=== PATIENT | female | born 1965 | race Caucasian/White ===

== ENCOUNTER 2018-02-10 12:23 | Observation (INO) ==
[2018-02-10 13:13] LABS: Basophils # 0.1 K/mcL (0.0-0.2); Basophils % 0.6 %; Eosinophils # 0.1 K/mcL (0.0-0.6); Eosinophils % 1.3 %; Hematocrit 42.4 % (35.3-44.9); Hemoglobin 14.3 g/dL (11.5-15.4); Immature Granulocytes % 0.3 % (0-4); Lymphocytes # 3.1 K/mcL (0.6-4.6); Lymphocytes % 34.3 %; Mean Corpuscular HGB Conc 33.7 g/dL (31.6-35.5); Mean Corpuscular Hemoglobin 31.2 pg (28.0-33.3); Mean Corpuscular Volume 92.6 fL (83.0-100.0); Monocytes # 0.5 K/mcL (0.0-1.3); Monocytes % 5.9 %; Neutrophils # 5.2 K/mcL (1.6-8.9); Platelet Count 208 K/mcL (140-400); Red Blood Count 4.58 M/mcL (3.82-4.97); Red Cell Distribution Width 11.9 % (11.5-14.5); Segmented Neutrophils % 57.6 %
[2018-02-10 13:25] LABS: INR 1.1; Prothrombin Time 11.3 Seconds (9.4-12.1)
[2018-02-10 13:38] LABS: Troponin I < 0.03 ng/mL (< 0.04)
[2018-02-10 13:59] LABS: Alanine Aminotransferase 35 Units/L (7-52); Albumin 4.3 g/dL (3.5-5.7); Albumin/Globulin Ratio 1.2 (1.1-2.2); Alkaline Phosphatase 84 Units/L (34-104); Aspartate Amino Transferase 27 Units/L (13-39); BUN/Creatinine Ratio 12 (6-26); Bilirubin,Total 0.5 mg/dL (0.3-1.0); Blood Urea Nitrogen 9 mg/dL (6-20); Calcium 9.8 mg/dL (8.6-10.3); Carbon Dioxide 25 mEq/L (23-29); Chloride 106 mEq/L (98-107); Globulin 3.5 g/dL (2.4-3.5); Glucose 103 mg/dL (70-105); Osmolality,Calculated 287 (280-300); Potassium 3.6 mEq/L (3.5-5.1); Sodium 139 mEq/L (136-145); Total Protein 7.8 g/dL (6.4-8.9); eGFR For African Americans > 60 (> 60); eGFR For Non-African Americans > 60 (> 60)
--- NOTE | 2018-02-10 14:23 | Emergency Department Note ---
Disposition Clinical Impression: Chest pain Qualifiers: Chest pain type: unspecified Qualified Code(s): R07.9 - Chest pain, unspecified Disposition: Admitted As Inpatient Condition: Undetermined Forms: ED Satisfaction Letter Time of Disposition: 15:00 Chest Pain HPI - General Chief Complaint: ED Chest Pain Stated Complaint: "CP,sob" Time Seen by Provider: 02/10/18 14:14 Source: patient Mode of arrival: ambulatory Limitations: no limitations Vital Signs Reviewed: Yes Nursing Notes Reviewed: Yes - History of Present Illness HPI Narrative: 52-year-old female with history of hypertension, hyperlipidemia, smoking with 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 The patient had associated dyspnea. No nausea or diaphoresis. No previous cardiac testing including no stress test or cardiac catheter. The patient was instructed that she had a previous mild IA in the past. The patient denies any other complaints at this time. She is chest pain-free. She denies any unilateral leg swelling, hemoptysis, history of DVT or PE, recent immobilizations or recent surgeries. She is resting comfortably in the room at this time. Severity scale (1-10): 8 - Related Data Allergies Allergy/AdvReac Type Severity Reaction Status Date / Time No Known Allergies Allergy Verified 02/10/18 12:26 All systems ED: reviewed and negative except as stated. Constitutional: Denies: fever, chills, weakness ENT ED: Denies: congestion Cardiovascular: Reports: chest pain. Denies: dyspnea on exertion, edema, syncope Respiratory: Reports: dyspnea. Denies: cough, sputum production Gastrointestinal: Denies: abdominal pain, nausea, vomiting Genitourinary: Denies: urgency, dysuria Musculoskeletal: Reports: neck pain. Denies: back pain, arthralgia, myalgia Integumentary: Denies: rash Neurological: Denies: headache Chest Pain PMH - Past Medical History Medical history: Reports: hyperlipidemia, hypertension, other Surgical history: Reports: non-contributory - Social History Smoking Status: Current every day smoker Alcohol use: Reports: none Drug use: Reports: none Physical Exam - General Limitations: no limitations General appearance: alert, in no apparent distress - Head Head exam: atraumatic, normocephalic, normal inspection - Eye Eye exam: Present: normal appearance, PERRL, EOMI - ENT ENT exam: normal exam, normal oropharynx, mucous membranes moist - Neck Neck exam: Present: normal inspection, full ROM, trachea midline - Chest Chest inspection: Present: normal inspection, symmetric chest wall rise - Respiratory Respiratory exam: Present: normal lung sounds bilaterally - Cardiovascular Cardiovascular exam: Present: normal rhythm, tachycardia, normal heart sounds - Abdominal Exam Abdominal exam: Present: soft, Non-Tender. Absent: tenderness, distention, guarding, rebound, rigidity - Extremities Exam Extremities exam: Present: normal inspection, full ROM. Absent: tenderness, pedal edema - Neurological Exam Neurological exam: Present: alert, oriented X3 - Skin Skin exam: Present: warm, dry, intact, normal color Course Vital Signs Temperature 98.1 F 02/10/18 12:26 Pulse Rate 113 02/10/18 12:26 Respiratory Rate 20 02/10/18 12:26 Blood Pressure 126/87 02/10/18 12:26 O2 Sat by Pulse Oximetry 95 02/10/18 12:26 Temperature 98.1 F 02/10/18 12:26 Pulse Rate 113 02/10/18 12:26 Respiratory Rate 20 02/10/18 12:26 Blood Pressure 126/87 02/10/18 12:26 O2 Sat by Pulse Oximetry 95 02/10/18 12:26 Oxygen Delivery Oxygen Delivery Room Air Chest Pain - [facility] Narrative Medical decision making narrative: Patient's workup here in the emergency department demonstrates no acute process. The patient's troponin is negative. She was administered nitroglycerin for chest pain as well as given 5 mg aspirin. Due to the patient' s tachycardia d-dimer was obtained which was negative. Patient's chest x-ray labs are otherwise unremarkable. The patient will be admitted to the hospital at this time. Accepted by Dr. Oliveira. No further questions or concerns noted. - Lab Data Lab results reviewed: Yes I reviewed the patient's lab results. Result diagrams: 02/10/18 12:55 02/10/18 12:55 Lab Results 02/10/18 02/10/18 02/10/18 Range/Units 12:55 12:55 12:55 WBC 9.0 (4.3-11.1) K/mcL RBC 4.58 (3.82-4.97) M/mcL Hgb 14.3 (11.5-15.4) g/dL Hct 42.4 (35.3-44.9) % MCV 92.6 (83.0-100.0) fL MCH 31.2 (28.0-33.3) pg MCHC 33.7 (31.6-35.5) g/dL RDW 11.9 (11.5-14.5) % Plt Count 208 (140-400) K/mcL MPV 11.0 (9.4-12.4) fL Immature Gran % 0.3 (0-4) % Seg Neutrophils % 57.6 % Lymphocytes % 34.3 % Monocytes % 5.9 % Eosinophils % 1.3 % Basophils % 0.6 % Neutrophils # 5.2 (1.6-8.9) K/mcL Lymphocytes # 3.1 (0.6-4.6) K/mcL Monocytes # 0.5 (0.0-1.3) K/mcL Eosinophils # 0.1 (0.0-0.6) K/mcL Basophils # 0.1 (0.0-0.2) K/mcL PT 11.3 (9.4-12.1) Seconds INR 1.1 APTT 39.0 H (26.0-36.0) Seconds D-Dimer 349 (0-500) ng/mLFEU Sodium 139 (136-145) mEq/L Potassium 3.6 (3.5-5.1) mEq/L Chloride 106 (98-107) mEq/L Carbon Dioxide 25 (23-29) mEq/L BUN 9 (6-20) mg/dL Creatinine 0.77 (0.60-1.20) mg/dL Est GFR ( Amer) > 60 (> 60) Est GFR (Non-Af Amer) > 60 (> 60) BUN/Creatinine Ratio 12 (6-26) Glucose 103 (70-105) mg/dL Calculated Osmolality 287 (280-300) Calcium 9.8 (8.6-10.3) mg/dL Total Bilirubin 0.5 (0.3-1.0) mg/dL AST 27 (13-39) Units/L ALT 35 (7-52) Units/L Alkaline Phosphatase 84 (34-104) Units/L Troponin I < 0.03 (< 0.04) ng/mL Serum Total Protein 7.8 (6.4-8.9) g/dL Albumin 4.3 (3.5-5.7) g/dL Globulin 3.5 (2.4-3.5) g/dL Albumin/Globulin Ratio 1.2 (1.1-2.2) - Radiology Data Radiology results reviewed: Yes I reviewed the patient's radiology results. Chest X-Ray 02/10/18 12:28 IMPRESSION: Normal chest x-ray D/ / Luis Manuel Mendoza MD / Luis Manuel Mendoza MD Interpreting Provider: Luis Manuel Mendoza MD - EKG Data EKG attestation: Yes I reviewed and interpreted this EKG. EKG results narrative: Heart rate 102 beats for minute. Sinus tachycardia. No ST elevation or ST depression noted. No acute changes noted. With the exception of sinus tachycardia.
[2018-02-10] MEDS: Nitroglycerin 0.4 MG TAB.SUBL SL PRN ×4 (15:02→18:05)
[2018-02-10] MEDS ORDERED: Aspirin 81 MG TAB.CHEW PO STA (15:03)
--- NOTE | 2018-02-10 15:25 | Emergency Department Note ---
Disposition Clinical Impression: Chest pain Qualifiers: Chest pain type: unspecified Qualified Code(s): R07.9 - Chest pain, unspecified Disposition: Admitted As Inpatient Condition: Fair Chest Pain HPI - General Chief Complaint: ED Chest Pain Stated Complaint: "CP,sob" Time Seen by Provider: 02/10/18 14:14 Source: patient Mode of arrival: ambulatory Limitations: no limitations Vital Signs Reviewed: Yes Nursing Notes Reviewed: Yes - History of Present Illness Severity scale (1-10): 8 - Related Data Home Medications Medication Instructions Recorded Confirmed Benzonatate [Tessalon] 200 mg PO TID 02/10/18 02/10/18 Cephalexin [Keflex] 500 mg PO QID 02/10/18 02/10/18 Guaifenesin [Mucinex] 1,200 mg PO BID 02/10/18 02/10/18 Lisinopril [Zestril] 10 mg PO DAILY 02/10/18 02/10/18 Prazosin HCl [Minipress] 4 mg PO HS 02/10/18 02/10/18 Ropinirole HCl [Requip] 0.5 mg PO HS 02/10/18 02/10/18 Trazodone HCl 100 - 200 mg PO HS PRN 02/10/18 02/10/18 Venlafaxine XR (24 HR) [Effexor XR] 150 mg PO DAILY 02/10/18 02/10/18 Allergies Allergy/AdvReac Type Severity Reaction Status Date / Time No Known Allergies Allergy Verified 02/10/18 12:26 Constitutional: Denies: fever, chills, weakness ENT ED: Denies: congestion Cardiovascular: Reports: chest pain. Denies: dyspnea on exertion, edema, syncope Respiratory: Reports: dyspnea. Denies: cough, sputum production Gastrointestinal: Denies: abdominal pain, nausea, vomiting Genitourinary: Denies: urgency, dysuria Musculoskeletal: Reports: neck pain. Denies: back pain, arthralgia, myalgia Integumentary: Denies: rash Neurological: Denies: headache Chest Pain PMH - Past Medical History Medical history: Reports: hyperlipidemia, hypertension, other Surgical history: Reports: non-contributory - Social History Smoking Status: Current every day smoker Alcohol use: Reports: none Drug use: Reports: none Physical Exam - General Limitations: no limitations General appearance: alert, in no apparent distress Course Vital Signs Temperature 98.1 F 02/10/18 12:26 Pulse Rate 113 02/10/18 12:26 Respiratory Rate 20 02/10/18 12:26 Blood Pressure 126/87 02/10/18 12:26 O2 Sat by Pulse Oximetry 95 02/10/18 12:26 Temperature 98.1 F 02/10/18 12:26 Pulse Rate 77 02/10/18 15:18 Respiratory Rate 16 02/10/18 15:18 Blood Pressure 120/88 02/10/18 15:18 O2 Sat by Pulse Oximetry 96 02/10/18 15:18 Oxygen Delivery Oxygen Delivery Room Air Chest Pain - Lab Data Result diagrams: 02/10/18 12:55 02/10/18 12:55 Lab Results 02/10/18 02/10/18 02/10/18 Range/Units 12:55 12:55 12:55 WBC 9.0 (4.3-11.1) K/mcL RBC 4.58 (3.82-4.97) M/mcL Hgb 14.3 (11.5-15.4) g/dL Hct 42.4 (35.3-44.9) % MCV 92.6 (83.0-100.0) fL MCH 31.2 (28.0-33.3) pg MCHC 33.7 (31.6-35.5) g/dL RDW 11.9 (11.5-14.5) % Plt Count 208 (140-400) K/mcL MPV 11.0 (9.4-12.4) fL Immature Gran % 0.3 (0-4) % Seg Neutrophils % 57.6 % Lymphocytes % 34.3 % Monocytes % 5.9 % Eosinophils % 1.3 % Basophils % 0.6 % Neutrophils # 5.2 (1.6-8.9) K/mcL Lymphocytes # 3.1 (0.6-4.6) K/mcL Monocytes # 0.5 (0.0-1.3) K/mcL Eosinophils # 0.1 (0.0-0.6) K/mcL Basophils # 0.1 (0.0-0.2) K/mcL PT 11.3 (9.4-12.1) Seconds INR 1.1 APTT 39.0 H (26.0-36.0) Seconds D-Dimer 349 (0-500) ng/mLFEU Sodium 139 (136-145) mEq/L Potassium 3.6 (3.5-5.1) mEq/L Chloride 106 (98-107) mEq/L Carbon Dioxide 25 (23-29) mEq/L BUN 9 (6-20) mg/dL Creatinine 0.77 (0.60-1.20) mg/dL Est GFR ( Amer) > 60 (> 60) Est GFR (Non-Af Amer) > 60 (> 60) BUN/Creatinine Ratio 12 (6-26) Glucose 103 (70-105) mg/dL Calculated Osmolality 287 (280-300) Calcium 9.8 (8.6-10.3) mg/dL Total Bilirubin 0.5 (0.3-1.0) mg/dL AST 27 (13-39) Units/L ALT 35 (7-52) Units/L Alkaline Phosphatase 84 (34-104) Units/L Troponin I < 0.03 (< 0.04) ng/mL Serum Total Protein 7.8 (6.4-8.9) g/dL Albumin 4.3 (3.5-5.7) g/dL Globulin 3.5 (2.4-3.5) g/dL Albumin/Globulin Ratio 1.2 (1.1-2.2) Attestation Statement - Attestation Attestation: I, Kerwin Olivia, examined this patient and my medical decision-making was reviewed with the TELEPHONE INSTALLER/PA/Advanced Practice Nurse/Resident Physician. I agree with the documented findings, disposition and treatment plan as described except to the extent set forth below. 52-year-old female presents emergency Department with concerns of chest pain and shortness of breath. Patient states symptoms started this morning upon waking. She reports associated nausea but denies diaphoresis. Patient reports she had an MO about 8 years ago. She also has a history of diabetes and high cholesterol. Patient EKG showed sinus tachycardia with rate of 102 without evidence of STEMI. D-dimer was negative. Initial troponin negative. Chest x- ray did not show evidence of acute infiltrate. Patient will be admitted to the hospitalist for further care and evaluation of her chest pain to rule out ACS.
[2018-02-10] MEDS ORDERED: Nitroglycerin 0.4 MG TAB.SUBL SL PRN (17:18)
--- NOTE | 2018-02-10 17:30 | Internal Med History&Physical ---
Date of Encounter: 02/10/18 Time of Encounter: 17:30 Internal Medicine - H&P: HPI Chief complaint: Chest pain Admitted From: Home Plans for Post Hospital Care: Home History of present illness: Ms. Merritt is a 52 year old female with past medical history of hypertension, hyperlipidemia, tobacco abuse, previous history of IV drug abuse state that she is in recovery now, presented to the emergency department with substernal chest pain as radiating to both her arms and her neck. Patient stated that this pain started this morning and it woke her up from sleep. She had some nausea but she did not throw up. She had some trouble breathing. Symptoms into emergency department resolved. My interviewing the patient she was pain-free. She states that she had minor heart attack about 10 years ago but she was told at that time that everything was negative. Patient denies any headache no blurry vision denies any other complaints Past Med Surg Social Fam HX - Past Medical History Medical history: hyperlipidemia, hypertension, other Psychiatric history: anxiety, depression - Past Surgical History Surgical History: non-contributory, appendectomy, , cholecystectomy Additional surgical history: hyst - Social History Smoking Status: Current every day smoker Packs per day: 0.5 Smokeless Tobacco Status: No Alcohol use: none Drug use: none - Family History Mother Hx Family Cardiac Disorders: Yes Hx Family Cancer: Yes Hx Family Endocrine Disorder: Yes Father Hx Family Cardiac Disorders: Yes Hx Family Cancer: Yes Hx Family Endocrine Disorder: Yes Internal Medicine - H&P: Meds Benzonatate [Tessalon] 200 mg PO TID 02/10/18 [History] Cephalexin [Keflex] 500 mg PO QID 02/10/18 [History] Guaifenesin [Mucinex] 1,200 mg PO BID 02/10/18 [History] Lisinopril [Zestril] 10 mg PO DAILY 02/10/18 [History] Prazosin HCl [Minipress] 4 mg PO HS 02/10/18 [History] Ropinirole HCl [Requip] 0.5 mg PO HS 02/10/18 [History] Trazodone HCl 100 - 200 mg PO HS PRN 02/10/18 [History] Venlafaxine XR (24 HR) [Effexor XR] 150 mg PO DAILY 02/10/18 [History] 3 Allergy/AdvReac Type Severity Reaction Status Date / Time No Known Allergies Allergy Verified 02/10/18 12:26 All Systems PM: A 10-system review of systems was performed and is negative for pertinent findings except as documented above in the HPI. Review of systems: Comprehensive 10 point review of system was reviewed and it was negative other than what was mentioned above - Constitutional Constitutional: no chills, no fever(s), no night sweats - EENT Eyes: no change in vision, no discharge, no pain, no photophobia Ears: no ear discharge, no ear pain, no tinnitus Nose, mouth and throat: no dysphagia, no nasal discharge, no neck pain, no sore throat - Cardiovascular Cardiovascular ROS IM: no chest pain, no diaphoresis, no dyspnea, no lightheadedness, no palpitations, no syncope - Respiratory Respiratory: no cough, no dyspnea, no wheezing, no excessive phlegm production - Gastrointestinal Gastrointestinal: no abdominal pain, no diarrhea, no hematemesis, no hematochezia, no melena, no nausea, no vomiting - Genitourinary Genitourinary: no change in urinary stream, no dysuria, no flank pain, no hematuria - Musculoskeletal Musculoskeletal ROS IM: no numbness, no tingling - Integumentary Integumentary IM: no rash, no unusual bruising - Neurological Neurological ROS: no confusion, no convulsions, no focal weakness, no numbness, no tingling, no tremor(s) - Hematologic/Lymphatic Hematologic/Lymphatic: no easy bruising - Constitutional Vitals: Temp Pulse Resp BP Pulse Ox 97.9 F 78 18 116/83 97 02/10/18 15:59 02/10/18 15:59 02/10/18 15:59 02/10/18 15:59 02/10/18 15:59 General appearance: Present: A&O X 3 - Head Head exam: Present: atraumatic, normocephalic - Eye Eye exam: Present: PERRL, conjuntiva pink, sclera anicteric Pupils: Present: PERRL - Neck Neck exam general surgery: Present: supple, trachea midline. Absent: lymphadenopathy - Respiratory Respiratory exam: Present: CTAB. Absent: accessory muscle use, rales, rhonchi, wheezes - Cardiovascular Cardiovascular exam: Present: RRR, +S1, +S2. Absent: diastolic murmur, gallop, rubs, systolic murmur - GI/Abdominal GI/Abdominal exam: Present: normal bowel sounds, soft, no peritoneal signs. Absent: distended, tenderness - Extremities Exam Extremities exam: Present: warm, radial pulses palpable and symmetrical. Absent : calf tenderness, cyanotic, pedal edema - Neurological Exam Neurological exam: Present: CN II-XII intact, oriented X3, no focal deficits. Absent: pronater drift, facial droop, speech deficit Internal Med - H&P Results - Labs CBC & Chem 7: 02/10/18 12:55 02/10/18 12:55 - Assessment and plan (1) Chest pain Current Visit: Yes Status: Acute Assessment and plan: Chest pain to rule out acute coronary syndrome Initial workup was negative. Troponin negative. No acute ST-T changes Continuous telemetry monitoring Serial troponin every 6 hours for 2 more sets We will check an echocardiogram for further evaluation of ejection fraction and wall motion abnormality Cardiac stress test in a.m.. Nothing by mouth after midnight Check fasting lipid profile Aspirin, metoprolol, statin, lisinopril, nitrates when necessary Qualifiers: Chest pain type: unspecified Qualified Code(s): R07.9 - Chest pain, unspecified (2) History of drug abuse Current Visit: Yes Status: Acute Assessment and plan: Will check urine drug screen. 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
[2018-02-10] MEDS: rOPINIRole 0.25 MG TABLET PO SCH (19:32)
[2018-02-10] MEDS: Benzonatate 100 MG CAPSULE PO SCH (19:33)
[2018-02-10 20:02] LABS: Amphetamine Screen,Urine Negative ng/mL (Cutoff=1000); Barbiturate Screen,Urine Negative ng/mL (Cutoff=200); Benzodiazepines Screen,Urine Negative ng/mL (Cutoff=200); Cannabinoid Screen,Urine Positive ng/mL (Cutoff = 50); Cocaine Screen,Urine Negative ng/mL (Cutoff= 300); Opiate Screen,Urine Negative ng/mL (Cutoff=300)
[2018-02-11 01:21] LABS: Basophils # 0.1 K/mcL (0.0-0.2); Basophils % 0.6 %; Eosinophils # 0.3 K/mcL (0.0-0.6); Eosinophils % 2.6 %; Hematocrit 39.5 % (35.3-44.9); Hemoglobin 13.3 g/dL (11.5-15.4); Immature Granulocytes % 0.2 % (0-4); Lymphocytes # 3.6 K/mcL (0.6-4.6); Lymphocytes % 37.8 %; Mean Corpuscular HGB Conc 33.7 g/dL (31.6-35.5); Mean Corpuscular Hemoglobin 31.3 pg (28.0-33.3); Mean Corpuscular Volume 92.9 fL (83.0-100.0); Mean Platelet Volume 11.4 fL (9.4-12.4); Monocytes # 0.5 K/mcL (0.0-1.3); Monocytes % 5.4 %; Neutrophils # 5.1 K/mcL (1.6-8.9); Platelet Count 168 K/mcL (140-400); Red Blood Count 4.25 M/mcL (3.82-4.97); Red Cell Distribution Width 11.8 % (11.5-14.5); Segmented Neutrophils % 53.4 %
[2018-02-11 01:34] LABS: INR 1.1; Prothrombin Time 11.5 Seconds (9.4-12.1)
[2018-02-11 01:40] LABS: Alanine Aminotransferase 30 Units/L (7-52); Albumin 3.8 g/dL (3.5-5.7); Albumin/Globulin Ratio 1.3 (1.1-2.2); Alkaline Phosphatase 78 Units/L (34-104); Aspartate Amino Transferase 23 Units/L (13-39); BUN/Creatinine Ratio 15 (6-26); Bilirubin,Total 0.4 mg/dL (0.3-1.0); Blood Urea Nitrogen 11 mg/dL (6-20); Calcium 9.4 mg/dL (8.6-10.3); Carbon Dioxide 26 mEq/L (23-29); Chloride 106 mEq/L (98-107); Glucose 135 mg/dL (70-105); Magnesium 1.8 mg/dL (1.6-2.6); Osmolality,Calculated 289 (280-300); Potassium 3.3 mEq/L (3.5-5.1); Sodium 139 mEq/L (136-145); Total Protein 6.8 g/dL (6.4-8.9); eGFR For African Americans > 60 (> 60); eGFR For Non-African Americans > 60 (> 60)
[2018-02-11 01:41] LABS: Chol/HDL Ratio 3.4 (0-4.9)
[2018-02-11 01:54] LABS: Thyroid Stimulating Hormone 1.473 mcIU/mL (0.340-5.600)
[2018-02-11] MEDS: Acetaminophen 325 MG TABLET PO PRN ×2 (04:05→15:15)
[2018-02-11] MEDS ORDERED: Regadenoson 0.4 MG/5 ML SYRINGE IVP ONE (05:41)
[2018-02-11] MEDS: Benzonatate 100 MG CAPSULE PO SCH ×3 (09:08→20:53)
[2018-02-11] MEDS: Aspirin 81 MG TAB.CHEW PO SCH (09:08)
[2018-02-11] MEDS: Venlafaxine XR (24 HR) 150 MG CAP.ER.24H PO SCH (09:08)
[2018-02-11 11:22] LABS: Estimated Average Glucose 105 mg/dl; Hemoglobin A1C 5.3 %
[2018-02-11] MEDS: Nitroglycerin 0.4 MG TAB.SUBL SL PRN ×4 (14:19→21:19)
--- NOTE | 2018-02-11 14:53 | Electrocardiograph Report ---
[employer] 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
--- NOTE | 2018-02-11 15:00 | Internal Med Progress Note ---
Date of Encounter: 02/11/18 Time of Encounter: 14:57 - Assessment and plan (1) Chest pain Current Visit: Yes Status: Acute Assessment and plan: PMH of HTN HLD tobacco abuse and previous drug abuse history Presented to the ED with substernal chest pain radiating to both arms and neck Reports that the pain is exertional and causing some shortness of breath, denies any diaphoresis or nausea No prior history of CAD Reports family hx of early cardiac demise Continuing to have midsternal chest pain with radiation 01/01 Underwent stress today, pharmacological stress negative for ischemia, perfusion imaging negative for ischemia Serial troponins negative times 30.03, ECG tracings negative for ischemic changes TTE-LVEF 60-65%, normal LV chamber size, thickness and function, mild LV diastolic dysfunction, normal RV structure and function, mild tricuspid regurg, no pulmonary HTN We will discuss with cardiology to evaluate need for further workup including potential need for [facility] Qualifiers: Chest pain type: unspecified Qualified Code(s): R07.9 - Chest pain, unspecified (2) HLD (hyperlipidemia) Current Visit: Yes Status: Acute Assessment and plan: Crestor Qualifiers: Qualified Code(s): E78.5 - Hyperlipidemia, unspecified (3) HTN (hypertension) Current Visit: Yes Status: Acute Assessment and plan: Continue CASSIDY inhibitor and beta terell Qualifiers: Qualified Code(s): I10 - Essential (primary) hypertension (4) History of drug abuse Current Visit: Yes Status: Acute Assessment and plan: History of alcohol and drug abuse Patient states that she is sober Urine drug screen positive for marijuana and possible PCP Unclear if PCP truly positive, could be lab error (5) Tobacco abuse Current Visit: Yes Status: Acute Assessment and plan: History of tobacco abuse Discussed tobacco cessation Does not wish to quit at this time (6) DVT prophylaxis Current Visit: Yes Status: Acute Assessment and plan: Early ambulation - Time Spent With Patient Total time spent is greater than 50% in coordination of care (as documented) at patient's floor/unit and/or counseling patient: 25 - 35 minutes - Subjective Interval history: Patient seen and examined at bedside today. No acute changes overnight. Continued to report midsternal chest pain which worsens with exertion. Also having intermittent shortness of breath with chest pain. - Constitutional Vitals: Temp Pulse Resp BP Pulse Ox 97.5 F L 68 16 102/69 96 02/11/18 10:47 02/11/18 10:47 02/11/18 10:47 02/11/18 10:47 02/11/18 10:47 General appearance: Present: mild distress, A&O X 3 - Head Head exam: Present: atraumatic, normocephalic - Eye Eye exam: Present: PERRL, conjuntiva pink, sclera anicteric Pupils: Present: PERRL - Neck Neck exam general surgery: Present: supple, trachea midline. Absent: lymphadenopathy - Respiratory Respiratory exam: Present: CTAB. Absent: accessory muscle use, rales, rhonchi, wheezes - Cardiovascular Cardiovascular exam: Present: RRR, +S1, +S2. Absent: diastolic murmur, gallop, rubs, systolic murmur - GI/Abdominal GI/Abdominal exam: Present: normal bowel sounds, soft, no peritoneal signs. Absent: distended, tenderness - Extremities Exam Extremities exam: Present: warm, radial pulses palpable and symmetrical. Absent : calf tenderness, cyanotic, pedal edema - Neurological Exam Neurological exam: Present: CN II-XII intact, oriented X3, no focal deficits. Absent: pronater drift, facial droop, speech deficit - Skin Skin exam: Present: dry, intact Internal Medicine: Result - Labs CBC & Chem 7: 02/11/18 00:40 02/11/18 00:40 Labs: Short CBC 02/11/18 Range/Units 00:40 WBC 9.5 (4.3-11.1) K/mcL Hgb 13.3 (11.5-15.4) g/dL Hct 39.5 (35.3-44.9) % Plt Count 168 (140-400) K/mcL Neutrophils # 5.1 (1.6-8.9) K/mcL BMP 02/11/18 00:40 Sodium 139 Potassium 3.3 L Chloride 106 Carbon Dioxide 26 BUN 11 Creatinine 0.72 Glucose 135 H Calcium 9.4 Cardiac Enzymes 02/10/18 02/11/18 02/11/18 Range/Units 18:28 00:40 05:28 Troponin I < 0.03 < 0.03 < 0.03 (< 0.04) ng/mL Liver Function 02/11/18 Range/Units 00:40 Total Bilirubin 0.4 (0.3-1.0) mg/dL AST 23 (13-39) Units/L ALT 30 (7-52) Units/L Alkaline Phosphatase 78 (34-104) Units/L Albumin 3.8 (3.5-5.7) g/dL - ABG Interpretation ABG results: PT/INR, D-dimer PT 11.5 Seconds (9.4-12.1) 02/11/18 00:40 D-Dimer 349 ng/mLFEU (0-500) 02/10/18 12:55 - Impressions Impressions Echocardiogram 02/10/18 17:18 Impressions: LVEF 60-65%. Normal LV chamber size, wall thickness and function. Mild left ventricular diastolic dysfunction. Normal right ventricular structure and function. Mild tricuspid regurgitation. No pulmonary hypertension. Left Ventricular Wall Motion: Rest Echo Findings All wall segments showed normal motion. Findings: Study Quality * Technically adequate exam. ECG Findings * Normal sinus rhythm. Left Ventricle * LVEF 60-65%. * Normal LV chamber size, wall thickness and function. * Mild left ventricular diastolic dysfunction. Right Ventricle * Normal right ventricular structure and function. Left Atrium * Mildly dilated left atrium. Right Atrium * Normal right atrial size. Aortic Valve * Trileaflet aortic valve with normal function. * No aortic regurgitation. * No aortic stenosis. Mitral Valve * Normal mitral valve structure and function. * No mitral stenosis. * No mitral regurgitation. Tricuspid Valve * Normal tricuspid valve structure. * Mild tricuspid regurgitation. * No pulmonary hypertension. Pulmonic Valve * Normal pulmonic valve structure and function. * No pulmonic regurgitation. Aorta * Normally sized aortic root. Pericardium * The pericardium appears normal. IVC * Normal IVC dimensions and inspiratory collapse. Pulmonary Artery * Normal visualized portions of the main pulmonary artery. Consult Discharge Plan - Plan
[2018-02-11] MEDS ORDERED: GI Cocktail 40 ML EACH PO ONE (16:58)
[2018-02-11] MEDS: rOPINIRole 0.25 MG TABLET PO SCH (20:53)
[2018-02-11] MEDS: traZODone 50 MG TABLET PO PRN (20:58)
[2018-02-12 02:07] LABS: BUN/Creatinine Ratio 20 (6-26); Blood Urea Nitrogen 14 mg/dL (6-20); Calcium 9.1 mg/dL (8.6-10.3); Carbon Dioxide 28 mEq/L (23-29); Chloride 108 mEq/L (98-107); Glucose 117 mg/dL (70-105); Osmolality,Calculated 292 (280-300); Potassium 3.7 mEq/L (3.5-5.1); Sodium 140 mEq/L (136-145); eGFR For African Americans > 60 (> 60); eGFR For Non-African Americans > 60 (> 60)
[2018-02-12 08:31] LABS: Phencyclidine Screen,Urine Negative ng/mL (Cutoff=25)
[2018-02-12] MEDS: Venlafaxine XR (24 HR) 150 MG CAP.ER.24H PO SCH (09:05)
[2018-02-12] MEDS: Benzonatate 100 MG CAPSULE PO SCH ×3 (09:06→21:20)
[2018-02-12] MEDS: Aspirin 81 MG TAB.CHEW PO SCH (09:07)
--- NOTE | 2018-02-12 11:34 | Cardiology Consult Note ---
Date of Encounter: 02/12/18 Time of Encounter: 08:00 Assessment and Plan (1) Chest pain Current Visit: Yes Status: Acute - Pleuritic chest pain however relieved by NTG - Intermittent however not improved since admission - Negative Troponin x5, EKG sinus tachycardia without ST changes - Echocardiogram on 02/11/18 shows EF 60-65% with mild diastolic and no wall motion abnormalities. - Stress test on 02/11/18 shows no ischemic changes. EF >70 - Risk factors: HTN, HLD, Tobacco use, family history, obesity. Plan - Patient continues to report chest pain relieved with NTG - Discussed the risks and benefits of LHC and explained that this is unlikely cardiac in nature given negative tests thus far. Patient would still like to proceed with LHC as she is having anxiety about her heart given her family history and continued pain. At this point it is reasonable to proceed with LHC given HPI and high risk factors. Will proceed with LHC this afternoon to rule out CAD and ischemia. Further plan as discussed with Dr. Latham. Qualifiers: Chest pain type: unspecified Qualified Code(s): R07.9 - Chest pain, unspecified (2) HTN (hypertension) Current Visit: Yes Status: Chronic Well controlled. 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 UDS positive for marijuana (4) Tobacco abuse Current Visit: Yes Status: Acute - Encouraged to quit. Patient strongly considering. Discussion w patient/family: The assessment and plan as outlined above was discussed with the patient and/or family members who expressed understanding and agreement. All questions were answered. Thank you for involving us in the care of your patient. Please call with any questions. History of Present Illness Consult date: 02/12/18 Requesting physician: Issac Yeboah Consult reason: Chest pain Chief complaint: chest pain, dizziness History of present illness: Ms. Merritt is a 52 year old female with a past medical history of hypertension, hyperlipidemia, tobacco abuse, previous IV drug use presents to emergency department with chest pain 1 day. She states that she awoke on morning of presentation and was dizzy when she awoke. She states that she attempted with past when she was continued dizzy. She also began to experience dull and sharp left-sided chest pain which radiation to her left arm. She states the pain is intermittent and is relieved with nitroglycerin she was given emergency department. Denies any exertional component. She does admit to having upper respiratory illness for approximately the last 10 days with associated nonproductive cough. She states she has been clean from IV drug use and used to use heroin, last use of 9 months ago. Patient denies any past cardiac history but does state she has a significant family history on her mother's side of CAD. During the course of this admission she has had a EKG which shows sinus tachycardia with a rate of [address] changes to indicate ischemia. Chest x-ray was within normal limits. Echocardiogram showed ejection fraction of 60-65% with mild diastolic dysfunction mild tricuspid irritation. Stress chest was also performed on which was negative for ischemia or infarct showed an ejection fraction of greater than 70%. Troponins were negative 5. During time of interview, patient continues to complain of intermittent chest pain relieved with nitroglycerin. We discussed that given her negative test. This far her cardiac risk is relatively low. We discussed the option of waiting and watching see if a further chest pain progressed. She was agreeable to this however she stated that she would have a large amount of anxiety not knowing the results of an invasive test. Past Med Surg Social Fam HX - Past Medical History Medical history: hyperlipidemia, hypertension, other Psychiatric history: anxiety, depression - Past Surgical History Surgical History: non-contributory Additional surgical history: hyst - Social History Smoking Status: Current every day smoker Packs per day: 0.5 Smokeless Tobacco Status: No Alcohol use: none Drug use: none - Family History Mother Hx Family Cardiac Disorders: Yes Hx Family Cancer: Yes Hx Family Endocrine Disorder: Yes Father Hx Family Cardiac Disorders: Yes Hx Family Cancer: Yes Hx Family Endocrine Disorder: Yes Medications and Allergies Benzonatate [Tessalon] 200 mg PO TID 02/10/18 [History] Cephalexin [Keflex] 500 mg PO QID 02/10/18 [History] Guaifenesin [Mucinex] 1,200 mg PO BID 02/10/18 [History] Lisinopril [Zestril] 10 mg PO DAILY 02/10/18 [History] Prazosin HCl [Minipress] 4 mg PO HS 02/10/18 [History] Ropinirole HCl [Requip] 0.5 mg PO HS 02/10/18 [History] Trazodone HCl 100 - 200 mg PO HS PRN 02/10/18 [History] Venlafaxine XR (24 HR) [Effexor XR] 150 mg PO DAILY 02/10/18 [History] 3 Allergy/AdvReac Type Severity Reaction Status Date / Time No Known Allergies Allergy Verified 02/10/18 12:26 All Systems Review: The remainder of the systems were reviewed and are negative - Constitutional Constitutional: no anorexia, no chills, no fever(s), no lethargy, no weakness - Cardiovascular Cardiovascular: chest pain at rest, diaphoresis, dyspnea at rest, dyspnea on exertion, lightheadedness, no irregular heart rhythm, no leg edema, no orthopnea , no palpitations, no rapid heart rate, no slow heart rate, no syncope - Respiratory Respiratory: cough, dyspnea, no hemoptysis, no wheezing - Gastrointestinal Gastrointestinal: no diarrhea, no nausea - Neurological Neurological: no syncope, no tingling - Psychiatric Psychiatric: anxiety Physical Examination General: Conversant, No Apparent Distress HEENT: Atraumatic, Normocephaly, Mucus Membranes Moist Neck: No JVD, Normal carotid pulses Cardiac: Reg Rate and Rhythm, Normal S1 and S2, No Murmur Lungs: Normal Breath Sounds, No Wheeze, Rales, Rhonchi Neuro: Alert and responsive, No focal deficits noted Abdomen: Soft, Non-Tender Skin: No rashes noted on visualized skin Musculoskeletal: Other (Reproducible chest pain on exam.) Extremities: No Clubbing, No Cyanosis, No Edema, Normal Pulses Results 02/11/18 00:40 02/12/18 01:26 Lab Results 02/11/18 02/12/18 21:49 01:26 Sodium 140 Potassium 3.7 Chloride 108 H Carbon Dioxide 28 BUN 14 Creatinine 0.71 Glucose 117 H Calcium 9.1 Troponin I < 0.03 Consult Discharge Plan - Plan Referrals: NONE,PCP [Primary Care Provider] -
[2018-02-12] MEDS ORDERED: 0.9 % Sodium Chloride 1,000 ML ONE (13:04)
[2018-02-12] MEDS ORDERED: Nitroglycerin 1,000 MCG/10 ML VIAL IV ONE (13:04)
[2018-02-12] MEDS ORDERED: Heparin 1,000 UNITS/500 mL 500 ML ONE (13:04)
[2018-02-12] MEDS ORDERED: ISOVUE-370 200 ML INFUS..BTL IV ONE (13:04)
[2018-02-12] MEDS ORDERED: *HR* Heparin 10,000 UNIT/10 ML VIAL ONE (13:04)
--- NOTE | 2018-02-12 13:29 | Internal Med Progress Note ---
Date of Encounter: 02/12/18 Time of Encounter: 13:27 - Assessment and plan (1) Chest pain Current Visit: Yes Status: Acute Assessment and plan: PMH of HTN HLD tobacco abuse and previous drug abuse history Presented to the ED with substernal chest pain radiating to both arms, left chest and neck Reports that the pain is exertional and causing some shortness of breath, denies any diaphoresis or nausea No prior history of CAD Reports family hx of early cardiac demise Continuing to have midsternal chest pain with radiation 5/10 Underwent stress on 02/11/18, pharmacological stress negative for ischemia, perfusion imaging negative for ischemia Serial troponins negative times x3 0.03, ECG tracings negative for ischemic changes TTE-LVEF 60-65%, normal LV chamber size, thickness and function, mild LV diastolic dysfunction, normal RV structure and function, mild tricuspid regurg, no pulmonary HTN Cardiology seeing in consultation, appreciate recommendations To undergo LHC this afternoon to rule out CAD and ischemia Qualifiers: Chest pain type: unspecified Qualified Code(s): R07.9 - Chest pain, unspecified (2) History of drug abuse Current Visit: Yes Status: Chronic Assessment and plan: History of alcohol and drug abuse Patient states that she is sober Urine drug screen positive for marijuana UDS positive for PCP, however, this is a lab error (3) Tobacco abuse Current Visit: Yes Status: Acute Assessment and plan: History of tobacco abuse Discussed tobacco cessation Does not wish to quit at this time (4) HTN (hypertension) Current Visit: Yes Status: Chronic Assessment and plan: Stable, Continue CASSIDY inhibitor and beta terell Qualifiers: Hypertension type: essential hypertension Qualified Code(s): I10 - Essential (primary) hypertension - Time Spent With Patient Total time spent is greater than 50% in coordination of care (as documented) at patient's floor/unit and/or counseling patient: 25 - 35 minutes - Subjective Interval history: Patient seen and examined at bedside today. No acute changes overnight. Continued to report midsternal chest pain, reports chest pain is 5/10. Also having intermittent shortness of breath with chest pain. - Constitutional Vitals: Temp Pulse Resp BP Pulse Ox 97.9 F 67 17 132/85 95 02/12/18 11:46 02/12/18 11:46 02/12/18 11:46 02/12/18 11:46 02/12/18 11:46 General appearance: Present: mild distress, A&O X 3 - Head Head exam: Present: atraumatic, normocephalic - Eye Eye exam: Present: EOMI, PERRL, conjuntiva pink, sclera anicteric Pupils: Present: PERRL - Neck Neck exam general surgery: Present: supple, trachea midline. Absent: lymphadenopathy - Respiratory Respiratory exam: Present: decreased breath sounds, CTAB, prolonged expiratory phase. Absent: accessory muscle use, chest wall tenderness, rales, respiratory distress, rhonchi, wheezes, tachypnea - Cardiovascular Cardiovascular exam: Present: RRR, +S1, +S2. Absent: diastolic murmur, gallop, rubs, systolic murmur - GI/Abdominal GI/Abdominal exam: Present: normal bowel sounds, soft, no peritoneal signs. Absent: distended, tenderness - Extremities Exam Extremities exam: Present: warm, radial pulses palpable and symmetrical. Absent : calf tenderness, cyanotic, pedal edema - Neurological Exam Neurological exam: Present: CN II-XII intact, oriented X3, no focal deficits. Absent: pronater drift, facial droop, speech deficit - Skin Skin exam: Present: dry, intact Internal Medicine: Result - Labs CBC & Chem 7: 02/11/18 00:40 02/12/18 01:26 Labs: BMP 02/12/18 01:26 Sodium 140 Potassium 3.7 Chloride 108 H Carbon Dioxide 28 BUN 14 Creatinine 0.71 Glucose 117 H Calcium 9.1 Cardiac Enzymes 02/11/18 Range/Units 21:49 Troponin I < 0.03 (< 0.04) ng/mL - ABG Interpretation ABG results: PT/INR, D-dimer PT 11.5 Seconds (9.4-12.1) 02/11/18 00:40 D-Dimer 349 ng/mLFEU (0-500) 02/10/18 12:55 Consult Discharge Plan - Plan Referrals: NONE,PCP [Primary Care Provider] -
[2018-02-12] MEDS ORDERED: *HR* Midazolam HCl 2 MG/2 ML VIAL ONE (13:30)
--- NOTE | 2018-02-12 13:33 | Pre-Sedation Evaluation ---
Pre-sedation evaluation - Pre-sedation checklist Date of procedure: 02/12/18 Procedure: Heart cath Recent Vitals: Last Vital Signs Temp 97.9 F 02/12/18 11:46 Pulse 67 02/12/18 11:46 Resp 17 02/12/18 11:46 BP 132/85 02/12/18 11:46 Pulse Ox 95 02/12/18 11:46 H&P (including ROS) documented in medical record: Yes Previous reaction to sedatives/anesthetics: No Dietary Status: No solid food in preceding 4 hrs and no liquid in preceding 2 hrs Airway Assessment: Patient can open mouth completely, TMJ function normal Dentition: No loose teeth or bridges Possible difficult airway: No ASA Classification *see protocol: CLASS III-Severe systemic disease Plan of Care: Pt appropriate candidate for procedure/moderate/conscious sedation , Risks/benefits of procedure/sedation discussed w/ patient/family, If not NPO; Risk of intake outweiged by necessity to perform procedure
--- NOTE | 2018-02-12 13:51 | Event Note ---
Date of Encounter: 02/12/18 Time of Encounter: 13:50 - Cardiology Event Note Per discussion with Dr. Samaniego, [facility] showed no disease. Cardiology will s/o, f/u with PCP.
[2018-02-12] MEDS ORDERED: *HR* Morphine 2 MG/ML SYRINGE ONE (13:53)
--- NOTE | 2018-02-12 14:15 | Invasive Diagnostic Lab Proc ---
Name: Brenda Merritt Date of Study: 02/12/2018 Date: 1965 Ht: 64.2in Medical Record#: [id number] Age: 52 Wt: 205.69lb Gender: Female BSA: 1.98 Order #: [id number] BMI: 35.12 Physicians Procedure Physician: Abraham Samaniego DO Referring MD: Referring MD: Staff Name Position Time In Shavon Cardenas RN Grinder Hardboard 01:22 PM Otoniel Robbins RN Monitor 01:22 PM Rick Ziegler RT (R) Scrub 01:22 PM Indications Indication Unstable Angina Procedures Performed Procedure L HRT ARTERY/VENTRICLE ANGIO Pre-Procedure Checklist Pt not NPO for procedure and MD aware. Plan of Care Patient will tolerate the procedure without complications. Adequate level of comfort will be maintained. Hemodynamics will remain stable Patient will recover from procedure without complications. Respiratory function will be maintained. Cardiac rhythm will remain stable. Patient temperature will be maintained. Patient and/or family have verbalized understanding of the procedure. Patient Education Intravenous Access Time IV Size Location DC'd Fluid/Drip Rate Units RN 20g 1 08/28" Patent On Arrival Rt Wrist Allergies No Known Allergies Vital Signs Time BP (mmHg) HR (bpm) O2 Sat. RR (bpm) LOC 01:24 PM / % 5 = Fully awake and oriented or at pre-proc level 01:24 PM / % 4 = Oriented but drowsy 01:30 PM 141 / 81 64 92 % 01:35 PM 138 / 88 62 91 % 01:40 PM 127 / 84 61 92 % 01:46 PM 157 / 98 60 91 % 01:50 PM 149 / 100 61 92 % Procedural Medications Time Medication Dose Units Method Given By 01:24 PM Oxygen 2 L/min nasal cannula Shavon Cardenas RN 01:31 PM Versed 2 mg Intravenous Shavon Cardenas RN 01:39 PM Lidocaine 2% 10 ml Subcutaneous Abraham Samaniego DO 01:52 PM Morphine 2 mg Intravenous Shavon Cardenas RN ASA Classification: CLASS III- Severe systemic disease (i.e. prior AMI, diabetes with vascular complications, morbid obesity) Greg Score Preprocedure Postprocedure Activity 2- Moves 4 extremities sustained head lift Activity 2- Moves 4 extremities sustained head lift Circulation 2- SBP +/= 20 points of pre-anesthetic level Circulation 2- SBP +/= 20 points of pre-anesthetic level Consciousness 2- Awake and alert oriented x 3 Consciousness 2- Awake and alert oriented x 3 O2 Saturation 2- Able to maintain O2 satruation of 92% on room air O2 Saturation 2- Able to maintain O2 satruation of 92% on room air Respiratory 2- Able to deep breathe and cough well Respiratory 2- Able to deep breathe and cough well Total Score 10 Total Score 10 Contrast Agent: Isovue Diagnostic Contrast: 50 ml Total Contrast: 50 ml Fluoro Dose: 3015 mGy Procedure Log Time Note Enter By 01:18 PM CathStat : PM Pt arrived to matlab developer 2 at :wards : PM Shavon Cardenas RN Position: Grinder Hardboard Time in: PM Otoniel Robbins RN Position: Monitor Time in: PM Rick Ziegler (R) Position: Scrub Time in: : PM Patient charges- Angio tray pack, Navilyst 3mm J, Pulse Oximetry and ACIST tubing and transducer ced PM IV Supplies used: J loop Angio Cath. PM Hair removed from procedure site in procedure lab using clippers. Bilateral groin prepped with Chloraprep by Rick Ziegler RT (R), then patient was draped. Skin intact. PM Physician arrived : PM Suraj completed PM Sign in performed according to hospital policy. PM Procedure start : PM ASA Class CLASS III- Severe systemic disease (i.e. prior AMI, diabetes with vascular complications, morbid obesity) PM Time: 13:24 Patient comfortable and pain free: Yes PM Time: 13:24LOC: 5 = Fully awake and oriented or at pre-proc level PM Time: 13:24 Oxygen on at 2 L/min per nasal cannula by Shavon Cardenas RN PM Case Start : PM Vitals capture started with the following parameters, Patient=Adult, Interval=5 min, Initial Mglrgypl=222 mmHg, Deflation Rate=5 mmHg, Cuff placed on Right Arm 01:30 PM HR=64 bpm, CKOK=053/81 mmhg, SpO2=92.0 %, Comment=NSR 01:31 PM Time: 13:31 Versed 2 mg Intravenous Given by Shavon Cardenas RN ced:33 PM Pressure channel 2 zeroed. 01:35 PM HR=62 bpm, JTWD=285/88 mmhg, SpO2=91.0 %, Comment=NSR :39 PM Time: 13:24LOC: 4 = Oriented but drowsy ced:39 PM Time: 13:24 Patient comfortable and pain free: Yes ced:39 PM Clinical Presentation: Unstable angina ced:39 PM Time out performed according to hospital policy ced:39 PM Time: 13:39 10 ml Lidocaine 2% to right groin Subcutaneous Given by Abraahm Samaniego DO ced 01:40 PM HR=61 bpm, LQBX=324/84 mmhg, SpO2=92.0 %, Comment=NSR 01:41 PM Micro-Introducer Kit utilized for sheath placement cedwards 01:41 PM Access obtained by percutaneous puncture. 6Fr 10cm Terumo Gary sheath placed in right Femoral artery. [id number] cedwards 01:42 PM 0.035 145cm Navilyst 3mmJ wire [id number] cedwards 01:42 PM 6Fr FR 4 catheter inserted over the wire [facility] cedwards 01:42 PM Catheter selectively placed in left ventricle cedwards 01:43 PM Recorded Pressure: LV, HR=64, Condition=Condition 1 (Left Ventricle) LV 133/22/29 01:43 PM Recorded Pressure: LV, Ao, HR=74, Condition=Condition 1 (Left Ventricle) LV 137/79/52, (Aorta) Ao 130/59/90 01:44 PM Bolus angiogram of left Ventricle complete cedwards 01:44 PM RCA angiography performed in multiple views. cedwards 01:44 PM Catheter removed cedwards 01:44 PM 6Fr FL 4 catheter inserted over the wire [facility] cedwards 01:45 PM LCA angiography performed in multiple views. cedwards 01:45 PM Recorded Pressure: Ao, HR=59, Condition=Condition 1 (Aorta) Ao 137/77/101 01:46 PM HR=60 bpm, TZOC=541/98 mmhg, SpO2=91.0 %, Comment=NSR 01:46 PM Catheter removed cedwards 01:46 PM Bolus angiogram of right Femoral complete cedwards 01:47 PM Procedure completed at 13:47 02/12/2018 cedwards 01:47 PM Did you address ABRAHAN flow and Dominance? Yes cedwards 01:48 PM Coronary Dominance: right cedwards 01:48 PM Sign out completed: Radiation Dose 273.73 mGy 3015.48 mGycm2 Fluoro Time: 1.2 Isovue 370 - 200ml contrast 50 ml given by Abraham Samaniego DO. Complications: NoneCardiac Rehab Consult needed: NoConfirmed administered medications: Yes cedwards 01:48 PM Isovue 370 - 200ml,1 Bottle(s) used. cedwards 01:49 PM Arterial sheath pulled using manual compression and V+ Pad for 15 minutes by Rick Ziegler RT (R) cedwards 01:49 PM Estimated Blood Loss: minimal cedwards 01:49 PM Post ECG NSR cedwards 01:49 PM Post Blood Pressure 157/98 cedwards 01:49 PM 13:49 Post Pulses Bilateral DP & PT 2+ cedwards 01:49 PM Education needs Procedure, Plan of Care, and Responsibilities of Patient in Care cedwards 01:49 PM Education Methods Verbal cedwards 01:49 PM Education evaluation Able to repeat information cedwards 01:50 PM Plavix, Effient or Brilinta given No cedwards 01:50 PM Family, NONE cedwards 01:50 PM Fluoro Time: 1.2 cedwards 01:50 PM HR=61 bpm, JZXS=216/100 mmhg, SpO2=92.0 % 01:50 PM Isovue 370 - 200ml contrast [address] Samaniego. cedwards 01:50 PM Radiation Dose 273.73 mGy cedwards 01:52 PM Time: 13:52 Morphine 2 mg Intravenous Given by Shavon Cardenas RN cedwards 02:04 PM Report given to Perri XIONG Pt taken to [facility] Room #29. 14:04 cedwards 02:04 PM Complications: None cedwards 02:05 PM Opsite applied cedwards 02:05 PM Patient out of room: 14:05 cedwards Complications Complication None None Hemodynamics Pressures Site Systolic/A Wave Diastolic/V Wave Mean LV 133 22 29 LV 137 79 52 AO 130 59 90 AO 137 77 101 Post Procedure Information Blood Pressure: 157/98 mmHg Rhythm: NSR Closure Device Time Device Success/Fail 02/12/2018 1:54:00 PM Manual Compression Successful Pulses Time Site Pre-Procedure Post-Procedure Note Bilateral DP & PT, Rad 2+ 1:49:00 PM Bilateral DP & PT 2+ Updated by Otoinel Robbins RN on 02/12/2018 2:05:57 PM electronically signed on 02/12/2018 2:06:59 PM with status of Final
[2018-02-12] MEDS ORDERED: 0.9 % Sodium Chloride 1,000 ML IVC SCH (14:45)
[2018-02-12] MEDS: traZODone 50 MG TABLET PO PRN (21:21)
[2018-02-12] MEDS: rOPINIRole 0.25 MG TABLET PO SCH (21:21)
[2018-02-13] MEDS: Acetaminophen 325 MG TABLET PO PRN (05:05)
[2018-02-13] MEDS: Aspirin 81 MG TAB.CHEW PO SCH (07:55)
[2018-02-13] MEDS: Benzonatate 100 MG CAPSULE PO SCH (07:55)
[2018-02-13] MEDS: Venlafaxine XR (24 HR) 150 MG CAP.ER.24H PO SCH (07:55)
--- NOTE | 2018-02-13 08:23 | Discharge Summary ---
- NOTES TO OUTPATIENT PROVIDER Notes to Outpatient Provider: Follow with PCP in 1-2 week. Baby aspirin continue-discussed the side effects including GI bleed. No beta terell was given as her heart rate was in lower 50s and low normal blood pressure Orders not resulted at time of discharge: Pending orders 02/10/18 17:23 NM tony perf SPECT multi [NM] Routine 02/11/18 06:00 ECG 12 lead ECG [ECG] AM 0600 Date of Encounter: 02/13/18 Time of Encounter: 08:17 - Discharge Diagnosis (1) Chest pain Priority: Primary Status: Acute Assessment and Plan: Has several risk factors for cardiac disease such as hypertension, chronic a smoker, positive family history and previous drug abuse history but No prior history of CAD. Patient underwent stress on 02/11/18, pharmacological stress negative for ischemia, perfusion imaging negative for ischemia. Serial troponins negative TTE-LVEF 60-65%, normal LV chamber size, thickness and function, mild LV diastolic dysfunction, normal RV structure and function, mild tricuspid regurg, no pulmonary HTN. Neurologist was consulted who did perform LHC with no acute finding. [employer] Up Worker's signed off. Will discharge patient home and follow-up with PCP. Will discharge patient on baby aspirin and low- dose statin though fasting lipid profile normal. No beta terell on discharge as patient had bradycardia heart rate in lower 50s and low normal blood pressure but can be considered by her PCP eventually based on cardiac risk factor assessment. Qualifiers: Chest pain type: unspecified Qualified Code(s): R07.9 - Chest pain, unspecified (2) HTN (hypertension) Priority: Secondary Status: Chronic Assessment and Plan: Stable, Continue CASSIDY inhibitor. Stopped beta terell due to low heart rate and low normal blood pressure as mentioned above. As continuation of beta terell may cause more harm by decreasing heart rate and causing hypotension therefore after assessing risk and benefit it would decided to hold for now. Qualifiers: Hypertension type: essential hypertension Qualified Code(s): I10 - Essential (primary) hypertension (3) Tobacco abuse Priority: Secondary Status: Acute Assessment and Plan: Discussed tobacco cessation Does not wish to quit at this time (4) History of drug abuse Priority: Secondary Status: Chronic Assessment and Plan: History of alcohol and drug abuse Patient states that she is sober Urine drug screen positive for marijuana UDS positive for PCP. Counseling done. Tobacco cessation education was given Hospital course: Ms. Merritt is a 52 year old female is chronic a smoker history of hypertension, drug abuse, positive family history for cardiac disease got admitted for cardiac workup. Please see details in diagnosis part of the discharge summary. At the time of discharge patient is clinically stable with no chest pain, ambulating and tolerating oral diet. Discharge discussed with: patient, nurse - Time Spent with Patient Total time spent providing and/or coordinating discharge services: - Discharge Medications Home Medications: Benzonatate [Tessalon] 200 mg PO TID 02/10/18 [History] Cephalexin [Keflex] 500 mg PO QID 02/10/18 [History] Guaifenesin [Mucinex] 1,200 mg PO BID 02/10/18 [History] Lisinopril [Zestril] 10 mg PO DAILY 02/10/18 [History] Prazosin HCl [Minipress] 4 mg PO HS 02/10/18 [History] Ropinirole HCl [Requip] 0.5 mg PO HS 02/10/18 [History] Trazodone HCl 100 - 200 mg PO HS PRN 02/10/18 [History] Venlafaxine XR (24 HR) [Effexor XR] 150 mg PO DAILY 02/10/18 [History] Allergies/Adverse Reactions: 3 Allergy/AdvReac Type Severity Reaction Status Date / Time No Known Allergies Allergy Verified 02/10/18 12:26 Date of admission: 02/10/18 15:14 Primary care physician: PCP NONE Consults: 02/11/18 16:57 Consult to Cardiology [CONS] Routine Comment: Consulting Provider: Cardiology Guerita Reason for Consult: CHEST PAIN Time Notified: 16:58 Call Completed: Yes - Constitutional Vitals: Temp Pulse Resp BP Pulse Ox 97.5 F L 53 17 102/54 97 02/13/18 06:45 02/13/18 06:45 02/13/18 06:45 02/13/18 06:45 02/13/18 06:45 General appearance: Present: mild distress, A&O X 3 Exam: General appearance: No acute distress, A&O X 3 Head exam: Atraumatic Eye exam: EOMI, PERRLA ENT exam: Moist oral mucosa Neck nontender, supple Respiratory exam: Clear to auscultation bilaterally Cardiovascular exam: Regular rate and rhythm, no systolic murmur Abdominal exam: Soft, nontender, nondistended, positive bowel sounds Extremities exam: No calf tenderness, no pedal edema Present: Skin-no rash, warm, dry, intact Neurological exam: Alert, awake, oriented 3, CN II-XII intact, no focal deficits. No facial droop. Normal speech. Normal gait. Romberg sign negative - Patient Status Disposition: Home, Self-Care Condition: Good Overall status at discharge: patient is back to baseline - Discharge Instructions Follow Up With: NONE,PCP [Primary Care Provider] - Forms: ED Satisfaction Letter - Diet and Activity Activity: increase activity as tolerated Diet: low fat, low cholesterol, low salt diet
[2018-02-13 11:06] VITALS: BP 115/85
--- NOTE | 2018-02-13 14:19 | Electrocardiograph Report ---
[place] [id number] Test Date: 2018-02-11 Pat Name: Brenda Merritt Department: 114 Room: [facility] Gender: F Crisis Counselor: JONH : 1965 Requested By: Cleo Gentile Order Number: [id number] Reading MD: Greg Zamarripa Measurements Intervals [place] Rate: 69 P: 30 DE: 178 QRS: 29 QRSD: 81 T: 23 QT: 375 QTc: 394 Interpretive Statements SINUS RHYTHM Electronically Signed On 02-13-2018 14:18:08 EDT by Greg Zamarripa
== END 2018-02-13 12:10 | disposition home or self-care (01) ==
LOC: EMEROO 12:23 → 3NENU 12:23
PROVIDERS: ADMIT Internal Medicine; ATTEND Hospitalist

== ENCOUNTER 2020-03-15 16:48 | Inpatient (IN) ==
[2020-03-15 17:48] LABS: Basophils # 0.1 K/mcL (0.0-0.2); Basophils % 0.5 %; Eosinophils # 0.1 K/mcL (0.0-0.6); Eosinophils % 0.5 %; Hematocrit 45.5 % (35.3-44.9); Hemoglobin 15.4 g/dL (11.5-15.4); Immature Granulocytes % 0.3 % (0-4); Lymphocytes # 3.2 K/mcL (0.6-4.6); Mean Corpuscular HGB Conc 33.8 g/dL (31.6-35.5); Mean Corpuscular Hemoglobin 31.1 pg (28.0-33.3); Mean Corpuscular Volume 91.9 fL (83.0-100.0); Mean Platelet Volume 12.5 fL (9.4-12.4); Monocytes # 0.6 K/mcL (0.0-1.3); Monocytes % 4.7 %; Neutrophils # 8.9 K/mcL (1.6-8.9); Platelet Count 163 K/mcL (140-400); Red Blood Count 4.95 M/mcL (3.82-4.97); White Blood Count 12.9 K/mcL (4.3-11.1)
[2020-03-15 17:59] LABS: Acetaminophen < 10 mcg/mL (10-20); BUN/Creatinine Ratio 13 (6-26); Blood Urea Nitrogen 10 mg/dL (6-20); Carbon Dioxide 21 mEq/L (23-29); Chloride 107 mEq/L (98-107); Ethanol < 10 mg/dL (Less than 10); Glucose 131 mg/dL (70-105); Osmolality,Calculated 289 (280-300); Potassium 2.9 mEq/L (3.5-5.1); Salicylate < 2.5 mg/dL (15.0-30.0); Sodium 139 mEq/L (136-145); eGFR For African Americans > 60 (> 60); eGFR For Non-African Americans > 60 (> 60)
[2020-03-15 17:59] LABS: Bilirubin,Urine Negative (Negative); Blood,Urine Trace (Negative); Calcium Oxalate Crystals,Urine Present; Clarity,Urine Clear (Clear); Color,Urine Yellow (Yellow); Glucose,Urine (UA) Normal (Normal); Hyaline Casts,Urine Few per lpf (None Seen); Ketones,Urine 10 mg/dL (Negative); Leukocyte Esterase,Urine Moderate (Negative); Mucus,Urine Few per lpf (None-Few); Nitrite,Urine Negative (Negative); Protein,Urine 70 mg/dL (Neg-Trace); Specific Gravity,Urine 1.026 (1.010-1.025); Squamous Epithelial Cell,Urine Few per hpf (None-Few); WBC,Urine 0-3 per hpf (0-3)
[2020-03-15] MEDS ORDERED: *HR* LORazepam 2 MG/ML VIAL ONE (17:59)
[2020-03-15] MEDS ORDERED: *HR* LORazepam 2 MG/ML VIAL IM ONE ×2 (18:08→19:00)
[2020-03-15 18:13] LABS: Amphetamine Screen,Urine Negative ng/mL (Cutoff=1000); Barbiturate Screen,Urine Positive ng/mL (Cutoff=200); Benzodiazepines Screen,Urine Negative ng/mL (Cutoff=200); Cannabinoid Screen,Urine Positive ng/mL (Cutoff = 50); Cocaine Screen,Urine Negative ng/mL (Cutoff= 300); Opiate Screen,Urine Negative ng/mL (Cutoff=300); Phencyclidine Screen,Urine Negative ng/mL (Cutoff=25)
[2020-03-15] MEDS ORDERED: Metoclopramide 10 MG/2 ML VIAL IVP ONE (18:17)
[2020-03-15] MEDS ORDERED: Potassium Chloride Elixir 20 MEQ/15 ML UDC PO ONE (18:19)
[2020-03-15] MEDS ORDERED: Haloperidol Lactate 5 MG/ML VIAL IM PRN (21:57)
[2020-03-15] MEDS ORDERED: Mag Hydrox/Al Hydrox/Simeth 30 ML UDC PO PRN (21:57)
[2020-03-15] MEDS ORDERED: MOM Conc 10 ML UD.LIQ PO PRN (21:57)
[2020-03-15] MEDS ORDERED: *HR* LORazepam 2 MG/ML VIAL IM PRN (21:57)
[2020-03-15] MEDS ORDERED: traZODone 50 MG TABLET PO PRN (21:57)
[2020-03-15] MEDS ORDERED: Acetaminophen 325 MG TABLET PO PRN (21:57)
[2020-03-15] MEDS ORDERED: *HR* LORazepam 1 MG TABLET PO PRN (21:57)
[2020-03-15] MEDS ORDERED: haloperidoL 5 MG TABLET PO PRN (21:57)
[2020-03-16] MEDS: hydrOXYzine pamoate 25 MG CAPSULE PO PRN ×2 (01:30→21:19)
[2020-03-16] MEDS: Nicotine 21 MG PATCH.TD24 TD SCH (12:26)
[2020-03-16] MEDS: Methadone Oral Concentrate 50 MG/5 ML UDC PO SCH (12:30)
[2020-03-17] MEDS: Methadone Oral Concentrate 50 MG/5 ML UDC PO SCH (08:27)
[2020-03-17] MEDS: Nicotine 21 MG PATCH.TD24 TD SCH (08:32)
[2020-03-17 09:53] VITALS: BP 121/85
[2020-03-17] MEDS: hydrOXYzine pamoate 25 MG CAPSULE PO PRN (13:36)
== END 2020-03-17 15:55 | disposition home or self-care (01) | DRG 751 ==
LOC: EMEROOARM 16:48 → 1ANU 21:41
PROVIDERS: ADMIT Psychiatry & Neurology Psychiatry; ATTEND Psychiatry & Neurology Psychiatry

== ENCOUNTER 2020-07-07 17:20 | Observation (INO) ==
[2020-07-07] MEDS ORDERED: Haloperidol Lactate 5 MG/ML VIAL IM PRN (19:02)
[2020-07-07] MEDS ORDERED: Mag Hydrox/Al Hydrox/Simeth 30 ML UDC PO PRN (19:02)
[2020-07-07] MEDS ORDERED: Acetaminophen 325 MG TABLET PO PRN (19:02)
[2020-07-07] MEDS ORDERED: *HR* LORazepam 1 MG TABLET PO PRN (19:02)
[2020-07-07] MEDS ORDERED: haloperidoL 5 MG TABLET PO PRN (19:02)
[2020-07-07] MEDS ORDERED: MOM Conc 10 ML UD.LIQ PO PRN (19:02)
[2020-07-07] MEDS ORDERED: *HR* LORazepam 2 MG/ML VIAL IM PRN (19:02)
[2020-07-07] MEDS ORDERED: cloNIDine HCL 0.1 MG TABLET PO PRN (19:09)
[2020-07-07] MEDS ORDERED: Ondansetron ODT 4 MG TAB.RAPDIS SL PRN (19:16)
[2020-07-07] MEDS ORDERED: Baclofen 10 MG TABLET PO PRN (19:16)
[2020-07-07] MEDS: traZODone 50 MG TABLET PO PRN (21:27)
[2020-07-07] MEDS: hydrOXYzine pamoate 25 MG CAPSULE PO PRN (21:27)
[2020-07-08] MEDS: hydrOXYzine pamoate 25 MG CAPSULE PO PRN ×2 (09:43→15:40)
[2020-07-08] MEDS: Methadone Oral Concentrate 50 MG/5 ML UDC PO SCH (19:31)
[2020-07-08] MEDS: traZODone 50 MG TABLET PO PRN (20:53)
[2020-07-08] MEDS: Baclofen 10 MG TABLET PO SCH (20:53)
[2020-07-09] MEDS: Baclofen 10 MG TABLET PO SCH (08:39)
[2020-07-09] MEDS: Methadone Oral Concentrate 50 MG/5 ML UDC PO SCH (08:40)
[2020-07-09 08:46] VITALS: BP 111/78
[2020-07-09] MEDS ORDERED: FLU Vac QV 20-21 (6Month+)/PF 0.5 ML SYRINGE IM ONE (09:20)
== END 2020-07-09 14:15 | disposition home or self-care (01) ==
LOC: EMEROOARM 17:20 → INTOOBSV 18:51 → 1ANU 18:51
PROVIDERS: ADMIT Psychiatry & Neurology Forensic Psychiatry; ATTEND Psychiatry & Neurology Forensic Psychiatry

== ENCOUNTER 2020-10-02 01:04 | Observation (INO) ==
[2020-10-02] MEDS ORDERED: *HR* LORazepam 1 MG TABLET PO ONE ×2 (01:31→04:08)
[2020-10-02] MEDS ORDERED: Gadolinium Contrast Agent (WT Based) IV PRN (04:07)
[2020-10-02] MEDS ORDERED: *HR* LORazepam 2 MG/ML VIAL IVP ONE (07:43)
[2020-10-02] MEDS ORDERED: Naloxone 0.4 MG/ML INJ IVP PRN (10:54)
[2020-10-02] MEDS ORDERED: MOM Conc 10 ML UD.LIQ PO PRN (10:54)
[2020-10-02] MEDS ORDERED: Mag Hydrox/Al Hydrox/Simeth 30 ML UDC PO PRN (10:54)
[2020-10-02] MEDS ORDERED: Ondansetron ODT 4 MG TAB.RAPDIS SL PRN (10:54)
[2020-10-02] MEDS ORDERED: Melatonin 3 MG TABLET PO PRN (11:17)
[2020-10-02] MEDS ORDERED: Acetaminophen 325 MG TABLET PO PRN (11:17)
[2020-10-02] MEDS: Nicotine 21 MG PATCH.TD24 TD SCH (12:59)
[2020-10-02] MEDS ORDERED: *HR* Buprenorphine HCl 2 MG SUBLINGUAL TABLET SL SCH (21:00)
[2020-10-02] MEDS ORDERED: Ketorolac 15 MG/ML VIAL IVP ONE (23:10)
[2020-10-02] MEDS ORDERED: hydrOXYzine pamoate 25 MG CAPSULE PO PRN (23:10)
[2020-10-02] MEDS ORDERED: cloNIDine HCL 0.1 MG TABLET PO PRN (23:11)
[2020-10-03] MEDS ORDERED: *HR* Enoxaparin 40 MG/0.4 ML SYRINGE SQ SCH (06:00)
[2020-10-03 06:06] LABS: Hematocrit 47.6 % (35.3-44.9); Hemoglobin 16.1 g/dL (11.5-15.4); Mean Corpuscular HGB Conc 33.8 g/dL (31.6-35.5); Mean Corpuscular Volume 88.6 fL (83.0-100.0); Mean Platelet Volume 12.3 fL (9.4-12.4); Platelet Count 206 K/mcL (140-400); Red Blood Count 5.37 M/mcL (3.82-4.97); Red Cell Distribution Width 11.9 % (11.5-14.5)
[2020-10-03 06:41] LABS: Alanine Aminotransferase 55 Units/L (7-52); Albumin 4.3 g/dL (3.5-5.7); Albumin/Globulin Ratio 1.1 (1.1-2.2); Alkaline Phosphatase 93 Units/L (34-104); Aspartate Amino Transferase 42 Units/L (13-39); BUN/Creatinine Ratio 19 (6-26); Bilirubin,Total 0.9 mg/dL (0.3-1.0); Blood Urea Nitrogen 13 mg/dL (6-20); Carbon Dioxide 21 mEq/L (23-29); Chloride 105 mEq/L (98-107); Globulin 3.8 g/dL (2.4-3.5); Glucose 85 mg/dL (70-105); Osmolality,Calculated 287 (280-300); Potassium 3.2 mEq/L (3.5-5.1); Sodium 139 mEq/L (136-145); Total Protein 8.1 g/dL (6.4-8.9); eGFR For African Americans > 60 (> 60); eGFR For Non-African Americans > 60 (> 60)
[2020-10-03] MEDS: Nicotine 21 MG PATCH.TD24 TD SCH (09:20)
[2020-10-03] MEDS ORDERED: Ibuprofen 400 MG TABLET PO PRN (10:23)
[2020-10-03 10:52] VITALS: BP 130/87
[2020-10-03] MEDS ORDERED: amLODIPine 5 MG TABLET PO SCH (11:00)
[2020-10-03 12:39] LABS: Bacteria,Urine Few per hpf (None-Few); Bilirubin,Urine Negative (Negative); Blood,Urine Trace (Negative); Clarity,Urine Turbid (Clear); Color,Urine Light-Orange (Yellow); Glucose,Urine (UA) Normal (Normal); Hyaline Casts,Urine Few per lpf (None Seen); Ketones,Urine Negative (Negative); Leukocyte Esterase,Urine Moderate (Negative); Mucus,Urine Many per lpf (None-Few); Nitrite,Urine Negative (Negative); Protein,Urine 100 mg/dL (Neg-Trace); RBC,Urine 0-3 per hpf (0-3); Renal Epithelial Cells,Urine Few per hpf (None-Few); Specific Gravity,Urine 1.028 (1.010-1.025); Squamous Epithelial Cell,Urine Few per hpf (None-Few); Transitional Epi Cells,Urine Few per hpf (None-Few)
== END 2020-10-03 15:16 ==
LOC: EMEROOARM 01:04 → 3BNU 01:04 → SUATTDRO 09:59 → 3BNU 10:25
PROVIDERS: ADMIT Internal Medicine; ATTEND Registered Nurse

== ENCOUNTER 2020-10-03 15:09 | Inpatient (IN) ==
[2020-10-03] MEDS ORDERED: Haloperidol Lactate 5 MG/ML VIAL IM PRN (15:25)
[2020-10-03] MEDS ORDERED: *HR* LORazepam 2 MG/ML VIAL IM PRN (15:25)
[2020-10-03] MEDS ORDERED: Mag Hydrox/Al Hydrox/Simeth 30 ML UDC PO PRN (15:25)
[2020-10-03] MEDS ORDERED: MOM Conc 10 ML UD.LIQ PO PRN (15:25)
[2020-10-03] MEDS ORDERED: hydrOXYzine pamoate 25 MG CAPSULE PO PRN (15:25)
[2020-10-03] MEDS ORDERED: haloperidoL 5 MG TABLET PO PRN (15:25)
[2020-10-03] MEDS ORDERED: *HR* LORazepam 1 MG TABLET PO PRN (15:25)
[2020-10-03] MEDS ORDERED: *HR* Buprenorphine HCl 8 MG TAB.SUBL SL SCH (15:30)
[2020-10-03] MEDS: Acetaminophen 325 MG TABLET PO PRN (20:00)
[2020-10-03] MEDS: Baclofen 10 MG TABLET PO PRN (20:42)
[2020-10-03] MEDS: Gabapentin 300 MG CAPSULE PO PRN (20:42)
[2020-10-03] MEDS: cloNIDine HCL 0.1 MG TABLET PO PRN (20:42)
[2020-10-03] MEDS: traZODone 50 MG TABLET PO PRN (22:06)
[2020-10-04] MEDS: cloNIDine HCL 0.1 MG TABLET PO PRN ×3 (05:00→21:06)
[2020-10-04] MEDS: Baclofen 10 MG TABLET PO PRN ×3 (05:00→21:06)
[2020-10-04] MEDS: Gabapentin 300 MG CAPSULE PO PRN ×3 (05:01→17:49)
[2020-10-04] MEDS: Acetaminophen 325 MG TABLET PO PRN ×2 (10:51→21:05)
[2020-10-04] MEDS: amLODIPine 5 MG TABLET PO SCH (11:27)
[2020-10-04] MEDS: cephALEXin 250 MG CAPSULE PO SCH ×3 (12:21→21:00)
[2020-10-04] MEDS: Nicotine 21 MG PATCH.TD24 TD SCH (17:08)
[2020-10-04] MEDS: traZODone 50 MG TABLET PO PRN (23:02)
[2020-10-05] MEDS: Gabapentin 300 MG CAPSULE PO PRN ×3 (05:14→20:31)
[2020-10-05] MEDS: Acetaminophen 325 MG TABLET PO PRN ×2 (08:39→20:31)
[2020-10-05] MEDS: amLODIPine 5 MG TABLET PO SCH (08:40)
[2020-10-05] MEDS: cephALEXin 250 MG CAPSULE PO SCH ×4 (08:42→20:31)
[2020-10-05] MEDS: Nicotine 21 MG PATCH.TD24 TD SCH (08:42)
[2020-10-05] MEDS: cloNIDine HCL 0.1 MG TABLET PO PRN ×2 (11:20→17:05)
[2020-10-05] MEDS: Baclofen 10 MG TABLET PO PRN (17:04)
[2020-10-05] MEDS: Ibuprofen 600 MG TABLET PO PRN (18:01)
[2020-10-05] MEDS: traZODone 50 MG TABLET PO PRN (22:18)
[2020-10-06] MEDS: cephALEXin 250 MG CAPSULE PO SCH ×4 (08:30→21:53)
[2020-10-06] MEDS: amLODIPine 5 MG TABLET PO SCH (08:31)
[2020-10-06] MEDS: cloNIDine HCL 0.1 MG TABLET PO PRN (08:34)
[2020-10-06] MEDS: Gabapentin 300 MG CAPSULE PO PRN ×2 (08:34→17:43)
[2020-10-06] MEDS: Baclofen 10 MG TABLET PO PRN ×2 (08:34→17:44)
[2020-10-06] MEDS: Nicotine 21 MG PATCH.TD24 TD SCH (08:35)
[2020-10-06] MEDS: Ibuprofen 600 MG TABLET PO PRN ×2 (08:35→17:44)
[2020-10-06] MEDS: Acetaminophen 325 MG TABLET PO PRN (22:41)
[2020-10-06] MEDS: traZODone 50 MG TABLET PO PRN (22:41)
[2020-10-07] MEDS: Baclofen 10 MG TABLET PO PRN ×2 (06:30→17:50)
[2020-10-07] MEDS: Ibuprofen 600 MG TABLET PO PRN ×2 (06:51→20:07)
[2020-10-07] MEDS: Nicotine 21 MG PATCH.TD24 TD SCH (08:50)
[2020-10-07] MEDS: cephALEXin 250 MG CAPSULE PO SCH ×4 (08:51→20:07)
[2020-10-07] MEDS: amLODIPine 5 MG TABLET PO SCH (08:52)
[2020-10-07] MEDS: cloNIDine HCL 0.1 MG TABLET PO PRN ×2 (13:53→20:07)
[2020-10-07] MEDS: Gabapentin 300 MG CAPSULE PO PRN (13:54)
[2020-10-07] MEDS: traZODone 50 MG TABLET PO PRN (22:40)
[2020-10-08] MEDS: Gabapentin 300 MG CAPSULE PO PRN ×2 (05:51→14:08)
[2020-10-08] MEDS: Baclofen 10 MG TABLET PO PRN ×2 (05:51→14:08)
[2020-10-08] MEDS: Ibuprofen 600 MG TABLET PO PRN (05:51)
[2020-10-08] MEDS: cephALEXin 250 MG CAPSULE PO SCH ×4 (08:49→19:58)
[2020-10-08] MEDS: amLODIPine 5 MG TABLET PO SCH (08:50)
[2020-10-08] MEDS: Nicotine 21 MG PATCH.TD24 TD SCH (08:51)
[2020-10-08] MEDS: Ibuprofen 800 MG TABLET PO PRN (19:58)
[2020-10-08] MEDS: cloNIDine HCL 0.1 MG TABLET PO PRN (19:58)
[2020-10-08] MEDS: traZODone 50 MG TABLET PO PRN (22:04)
[2020-10-09] MEDS: Ibuprofen 800 MG TABLET PO PRN ×2 (06:42→18:05)
[2020-10-09] MEDS: Nicotine 21 MG PATCH.TD24 TD SCH (09:01)
[2020-10-09] MEDS: cephALEXin 250 MG CAPSULE PO SCH ×2 (09:08→12:49)
[2020-10-09] MEDS: amLODIPine 5 MG TABLET PO SCH (09:08)
[2020-10-09] MEDS: Gabapentin 300 MG CAPSULE PO PRN ×2 (09:13→21:06)
[2020-10-09] MEDS: Baclofen 10 MG TABLET PO PRN ×2 (09:14→18:05)
[2020-10-09] MEDS: cloNIDine HCL 0.1 MG TABLET PO PRN (15:54)
[2020-10-09] MEDS: Acetaminophen 325 MG TABLET PO PRN (21:06)
[2020-10-09] MEDS: traZODone 50 MG TABLET PO PRN (21:38)
[2020-10-10] MEDS: Ibuprofen 800 MG TABLET PO PRN (04:32)
[2020-10-10] MEDS: amLODIPine 5 MG TABLET PO SCH (09:00)
[2020-10-10] MEDS: Nicotine 21 MG PATCH.TD24 TD SCH (09:01)
[2020-10-10] MEDS: Baclofen 10 MG TABLET PO PRN (09:07)
[2020-10-10 09:40] VITALS: BP 149/92
[2020-10-10] MEDS: cloNIDine HCL 0.1 MG TABLET PO PRN (09:45)
== END 2020-10-10 16:00 | DRG 751 ==
LOC: 1ANU 15:09
PROVIDERS: ADMIT Psychiatry & Neurology Psychiatry; ATTEND Psychiatry & Neurology Psychiatry